=== PATIENT | male | born 2000 | race Caucasian/White ===

== ENCOUNTER 2021-02-22 20:48 | Emergency (ER) | payer BC, SELFPAY ==
[~2021-02-22] VITALS: Ht 185.4 cm; Wt 86.2 kg
[2021-02-22 20:57] VITALS: BP_SYST 126
--- NOTE | 2021-02-22 22:40 | NUR ---
Patient ambulatory to bed 4 for evaluation
--- NOTE | 2021-02-22 22:49 | NUR ---
PT CAME TO ER FOR FEVER AND HEADACHE X3 DAYS. HEADACHE IS 6/10. PT HAS BEEN TAKING NYQUILL AND TYLENOL FOR THE FEVER, STATES IT HAS BEEN CONTROLLED. HE HAS BEEN EXPERIENCING NAUSEA WELL WITH THE HEADACHES.
--- NOTE | 2021-02-23 00:05 | NUR ---
ER at bedside examining patient.
[2021-02-23] MEDS ORDERED: PENI500T PO (00:30)
--- NOTE | 2021-02-23 00:35 | NUR ---
Patient given written and verbal discharge instructions and verbalizes understanding. ER MD discussed with patient the results and treatment provided. Patient in stable condition. ID arm band removed. Rx of PENICILLIN V POTASSIUM given. Patient educated on pain management and to follow up with PMD. Pain Scale 0/10. Opportunity for questions provided and answered. Medication side effect fact sheet provided.
[2021-02-23 02:12] VITALS: BP_SYST 126
== END 2021-02-23 02:12 | disposition home or self-care (01) ==
LOC: SED 20:48
DX: J02.9 Acute pharyngitis, unspecified (principal); Z20.822 Contact with and (suspected) exposure to COVID-19
CPT/HCPCS: 36415; 86403; 87081; 99283